=== PATIENT | female | born 1970 | race Caucasian/White ===

== ENCOUNTER 2019-04-05 11:00 | Outpatient (CLI) | payer OTHER ==
[2019-04-05 11:19] LABS: BASOPHILS # (AUTO) 0.1 10^3/uL (0.0-0.1); BASOPHILS % (AUTO) 0.9 %; EOSINOPHILS % (AUTO) 0.5 %; HGB - HEMOGLOBIN 14.7 g/dL (12.0-16.0); LYMPHOCYTES # (AUTO) 1.9 10^3/uL (1.5-3.5); LYMPHOCYTES % (AUTO) 33.2 %; MEAN CORPUSCULAR HEMOGLOBIN 29.8 pg (27.0-31.0); MEAN CORPUSCULAR HGB CONC 33.5 g/dL (32.0-36.0); MONOCYTES # (AUTO) 0.4 10^3/uL (0.0-1.0); MONOCYTES % (AUTO) 7.3 %; NEUTROPHILS # (AUTO) 3.4 10^3/uL (1.5-6.6); NEUTROPHILS % (AUTO) 58.1 %; PLT - PLATELET COUNT 196 10^3/uL (130-450); RED BLOOD COUNT 4.93 10^6/uL (4.20-5.40); WHITE BLOOD COUNT 5.8 x10^3/uL (4.8-10.8)
[2019-04-05 11:43] LABS: ALBUMIN 4.4 g/dL (3.2-5.5); ALBUMIN/GLOBULIN RATIO 1.6 (1.0-2.2); BILIRUBIN,TOTAL 0.9 mg/dL (0.2-1.0); CREATININE 0.7 mg/dL (0.4-1.0); TOTAL PROTEIN 7.2 g/dL (6.7-8.2)
[2019-04-05 12:00] LABS: CALCIUM 9.6 mg/dL (8.5-10.3)
--- NOTE | 2019-04-05 13:36 | Ultrasound Report ---
Reason: DISORDER OF THE SKIN AND SUBCUTANEOUS TISSUE, UNSP Procedure Date: 04/05/2019 Accession Number: [id number] / [id number] Procedure: US - Head or Neck Soft Tissue CPT Code: FULL RESULT: EXAM: NECK ULTRASOUND EXAM DATE: 04/05/2019 11:50 AM. CLINICAL HISTORY: DISORDER OF THE SKIN AND SUBCUTANEOUS TISSUE, UNSP. Left neck and mastoid regional pain. No palpable lump. Diffuse pain along left jaw and neck. COMPARISON: None. TECHNIQUE: Real-time sonographic imaging was performed by the ironer hand utilizing color-flow. Multiple patient care representative static images were saved for review. FINDINGS: No sonographic abnormality is evident in region of patient's left neck pain. Left submandibular gland is unremarkable. No hyperemia or calcification. No drainable fluid collection or adenopathy. IMPRESSION: 1. No sonographic abnormality in region of patient's left neck pain. If there is clinical indication to further assess, consider contrast enhanced CT. RADIA
== END 2019-04-05 11:01 | disposition home or self-care (01) ==
LOC: LAB 11:00 → DI 11:01
PROVIDERS: ATTEND Specialist
DX: L02.11 Cutaneous abscess of neck (principal); R53.83 Other fatigue
CPT/HCPCS: 36415; 76536; 80053; 85025

== ENCOUNTER 2021-03-26 12:31 | Emergency (ER) | payer OTHER ==
[2021-03-26] MEDS ORDERED: TETANUS/DIPHTHERIA/PERTUSSIS 0.5 ML SYRINGE IM ONE (13:14)
--- NOTE | 2021-03-26 13:17 | ED Physician Documentation ---
History of Present Illness - Stated complaint Stated Complaint: SWOLLEN HANDS - Chief complaint Chief Complaint: Ext Problem - Additonal information Additional information: 50-year-old female presents emergency department for evaluation of concerns of infection of her left hand. 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 Unfortunately when trimming a large swath of roses 1 fell down and a thorn stabbed her directly over the MCP joint of the left index finger. She did not think much of it as she has had many thorn encounters in the past. However over the last 6 days there has been some mild swelling and redness near the MCP. She has had no fevers or red streaking. The swelling and erythema had begun to improve until 2 days ago when she was riding a tractor and kept her left hand in a closed position over the steering well for a long time. Following this she had increased redness at the MCP. Denies any history of diabetes. Unknown last tetanus. Review of Systems Constitutional: denies: Fever, Chills Eyes: reports: Reviewed and negative Ears: reports: Reviewed and negative Nose: reports: Reviewed and negative Throat: reports: Reviewed and negative Cardiac: reports: Reviewed and negative Respiratory: reports: Reviewed and negative GI: reports: Reviewed and negative : reports: Reviewed and negative Skin: reports: Lesions (left hand) Musculoskeletal: reports: Extremity pain (left hand) Neurologic: reports: Reviewed and negative PD PAST MEDICAL HISTORY - Past Medical History Past Medical History: Yes Cardiovascular: None Respiratory: None Neuro: None Endocrine/Autoimmune: None GI: None FILAMENT MAKER: None : None HEENT: None Psych: None Musculoskeletal: None Derm: None - Past Surgical History Past Surgical History: Yes General: Appendectomy /FILAMENT MAKER: Hysterectomy HEENT: Other - Present Medications Home Medications: Ambulatory Orders Medication Instructions Recorded Confirmed cephALEXin [Keflex] 500 mg PO Q6H #28 03/26/21 estradioL [Estradiol (Twice 1 each TD 03/26/21 Weekly)] - Allergies Allergies/Adverse Reactions: Allergies Allergy/AdvReac Type Severity Reaction Status Date / Time clarithromycin Allergy Anxiety Verified 03/26/21 12:38 moxifloxacin Allergy Hallucinati Verified 03/26/21 12:38 ons - Social History Does the pt smoke?: No Smoking Status: Never smoker Does the pt drink ETOH?: No Does the pt have substance abuse?: No - Immunizations Immunizations are current?: Yes PD ED PE EXPANDED - General General: Alert, No acute distress - Extremities Extremities: Normal, Tenderness, Left finger(s) (mild swelling and erythema at MCP of left index finger. no fluctuance. full grasp. Mild tendenress with active ROM; No tenderness with passive ROM. 2+ radial pulse. Brisk cap refill distally). No: Deformity Results - Vitals Vitals: Vital Signs - 24 hr 03/26/21 12:38 Temperature 36.5 C Heart Rate 68 Respiratory 16 Rate Blood Pressure 146/72 H O2 Saturation 99 Oxygen O2 Source Room air PD MEDICAL DECISION MAKING - ED course Complexity details: d/w patient ED course: 50-year-old female presents to the emergency department for evaluation of concerns of infection at the MCP of her left index finger. She was stabbed by a thorn just over 1 week ago. There is some mild erythema and swelling but no fluctuance. She has full range of motion of the joint against resistance. There is no pain with passive range of motion. My suspicion for joint infection is rather low at this juncture. Tetanus was updated today. However given the failure of this wound to resolve over the last week I do suspect that she has a mild soft tissue infection/cellulitis. Patient will be started on a short course of cephalexin. Will also recommend warm compress. Emergent return precautions discussed for failure of symptoms to resolve. Departure - Departure Disposition: 01 Home, Self Care Clinical Impression: Cellulitis of left hand Condition: Stable Record reviewed to determine appropriate education?: Yes Instructions: Cellulitis Dc Follow-Up: Uriel James MD [Primary Care Provider] - Prescriptions: cephALEXin [Keflex] 500 mg PO Q6H #28 Comments: Cecelia as we discussed I suspect that you have minor inflammation or perhaps even a minor infection at the joint of your index finger on your hand. My suspicion for infection within the joint or synovial fluid is very very low at this time. I do recommend that you place a warm compress of this joint for about 10 minutes 2-3 times a day. Please fill the prescription for the antibiotics and begin taking as directed. I would expect the redness and swelling to resolve over the next 3 to 4 days. If not improving or markedly worsening then please return to the ER for a second look.
[2021-03-26 13:33] VITALS: BP 133/91
== END 2021-03-26 13:38 | disposition home or self-care (01) ==
LOC: ED 12:31
DX: L03.012 Cellulitis of left finger (principal); Z23 Encounter for immunization
CPT/HCPCS: 90471; 99283

== ENCOUNTER 2022-10-25 08:28 | Outpatient (CLI) | payer OTHER ==
--- NOTE | 2022-10-25 09:15 | DEXA Report ---
PROCEDURE: Dexa Spine and/or Hip INDICATIONS: POST MENOPAUSAL TECHNIQUE: Dual energy x-ray absorptiometry (DXA) was performed on a [employer] System. Regions measur ed are the AP Spine, femoral neck, and if needed forearm. COMPARISON: None. FINDINGS: Lumbar Spine: Bone Mineral Density 1.077 g/cm/cm,T score -0.9, normal Left Femoral Neck: Bone Mineral Density 0.882 g/cm/cm, T score -1.1, osteopenia Left total Hip: Bone Mineral Density 0.873 g/cm/cm,T score -1.1, osteopenia (T score greater or equal to -1.0: NORMAL) (T score from -1.1 to -2.4: OSTEOPENIA) (T score less than or equal to -2.5 to: OSTEOPOROSIS) Impression: Bone mineral density is osteopenic Patients with diagnosis of osteoporosis or osteopenia should have regular bone mineral density assess ment. For those eligible for Medicare, routine testing is allowed once every 2 years. Testing frequ ency can be increased for patients who have rapidly progressing disease or for those who are receivin g medical therapy to restore bone mass. Reviewed by: Carroll Rivera on 10/25/2022 9:13 AM PST Approved by: Carroll Rivera on 10/25/2022 9:13 AM PST Station ID: [id number]
== END 2022-10-25 08:29 | disposition home or self-care (01) ==
LOC: DI 08:28
PROVIDERS: ATTEND Internal Medicine
DX: N95.8 Other specified menopausal and perimenopausal disorders (principal); M85.89 Other specified disorders of bone density and structure, multiple sites

== ENCOUNTER 2023-06-14 09:10 | Outpatient (CLI) | payer OTHER ==
--- NOTE | 2023-06-15 09:37 | Mammography Report ---
BILATERAL DIGITAL DIAGNOSTIC MAMMOGRAM 3D/2D WITH EXAGGERATED CC SPOT COMPRESSION: 06/14/2023 CLINICAL: Palpable left breast lump. Due for bilateral. Comparison is made to exam dated: 04/28/2013 mammogram - [facility]. Both breasts are extremely dense, which lowers the sensitivity of mammography (category d />75% gland ular tissue). There is an oval mass with an obscured margin in the left breast at 6 o'clock middle depth. This cor relates as palpated. There also is a focal asymmetry with an obscured margin in the left breast at 5 o'clock middle depth. This correlates as palpated. No other significant masses, calcifications, or other findings are seen in either breast. IMPRESSION: INCOMPLETE: NEEDS ADDITIONAL IMAGING EVALUATION The oval mass in the left breast at 6 o'clock middle depth resembles a cyst and is indeterminate. The focal asymmetry in the left breast at 5 o'clock middle depth resembles a cyst and is indeterminat e. A targeted ultrasound is recommended and will immediately follow. Based on Tyrer-Cuzick model (a risk assessment model), the patient's lifetime risk is 20.4% and her 1 0 year risk is 5.8%. If a patient has an elevated risk, a more comprehensive evaluation should be con sidered and/or a referral to a genetic counselor. The [place] [employer], [place] [employer], and NCCN Guidelines advise the consideration of Breast MRI as an adjunct to screening mammog jacob in patients whose "Lifetime risk to develop breast cancer" is 20% or higher. This exam was interpreted at Station ID: [id number]. NOTE: For mammograms, a report in lay terms will be sent to the patient. Approximately 15% of breast malignancies will not be visualized mammographically. In the management of a palpable breast mass, a negative mammogram must not discourage biopsy of a clinically suspicious lesion. Electronically Signed By: Bakari Sheriff M.D. slc/:06/14/2023 12:10:19 ACR BI-RADS Category 0: Incomplete 3340F PARENCHYMAL PATTERN: (VD) - The breast(s) demonstrate(s) extremely dense parenchyma, limiting the sen sitivity of mammography. BI-RADS CATEGORY: (0) - 0 Ultrasound [id number] Immediate follow-up LATERALITY: (B)
--- NOTE | 2023-06-15 09:38 | Ultrasound Report ---
LIMITED ULTRASOUND OF LEFT BREAST: 06/14/2023 CLINICAL: Palpable left breast lump. Comparison is made to exam dated: 04/28/2013 mammogram - [facility]. Color flow and real-time ultrasound of the left breast 5-6 o'clock region were performed. Cm scal e images of the real-time examination were reviewed. There is a benign 1.4 cm x 1.3 cm x 0.6 cm oval simple cyst in the left breast at 6 o'clock middle de pth 4 cm from the nipple. This oval simple cyst is anechoic. This correlates with mammography findi ngs. Color flow imaging demonstrates that there is no vascularity present. There also is a benign 1.2 cm x 1 cm x 0.7 cm oval simple cyst in the left breast at 5 o'clock middle depth 4 cm from the nipple. This oval simple cyst is anechoic. This correlates with mammography fi ndings. Color flow imaging demonstrates that there is no vascularity present. IMPRESSION: BENIGN There is no sonographic evidence of malignancy. The 1.4 cm simple cyst in the left breast at 6 o'clock middle depth is benign. The 1.2 cm simple cyst in the left breast at 5 o'clock middle depth is benign. A 1 year screening mammogram is recommended. Exam findings were conveyed to the patient. Patient is advised to monitor for significant change. This exam was interpreted at Station ID: [id number]. Electronically Signed By: Bakari Sheriff M.D. slc/:06/14/2023 12:15:38 Ultrasound BI-RADS: 2 Benign BI-RADS CATEGORY: (2) - 2 Mammogram [id number] 1 year screening LATERALITY: (B)
== END 2023-06-14 09:11 | disposition home or self-care (01) ==
LOC: DI 09:10
PROVIDERS: ATTEND Student in an Organized Health Care Education/Training Program
DX: N60.12 Diffuse cystic mastopathy of left breast (principal)